=== PATIENT | male | born 1985 | race Caucasian/White ===

== ENCOUNTER 2016-12-24 22:21 | Emergency (ER) | payer BC ==
--- NOTE | ~2016-12-24 | ER ---
ADMIT: 12/24/2016 RM/LOC: ER [facility] MR#: [id number] [facility] [address] ANGELIC SANTOS [address] [place] [address] Emergency Room Report SEX: M AGE: 31 : 1985 DATE: 12/24/2016 The patient is a 31-year-old male, complaining of left lower leg pain without injury for the past 2 weeks. Concerned he may have a blood clot, no prior history of coagulopathy or family history of coagulopathy. Exam remarkable for nontoxic, afebrile male, in no acute distress. D-dimer 0.19. Reassured patient that he does not have a blood clot either on physical exam or biochemically. Follow up Dr. Horne as needed. Marshall Roblero MD/ frank JOB #: [id number] CC: Marshall Roblero MD, Attending Physician Seferino Horne MD, Family Physician Seferino Horne MD
--- NOTE | 2016-12-25 03:01 | ER ---
ADMIT: 12/24/2016 RM/LOC: ER [facility] MR#: [id number] [address] [address] ANGELIC SANTOS [address] [place] [address] Emergency Room Report SEX: M AGE: 31 : 1985 DATE: 12/24/2016 The patient is a 1-month-old whom mother states for the past 3 weeks has had consistent diarrhea with every feeding, sometimes twice between feedings, initially started on breast milk, transitioned to lactose-based formula, then soy-based, now back to lactose. Denies any eructations, feeding 3-4 ounces per feeding. Exam remarkable for nontoxic, afebrile male. No acute distress. Discussed findings with Dr. Michaud, who agrees with this physician to continue formula. Follow up Terry Kent in morning with stool sample. Marshall Roblero MD/ frank JOB #: [id number] CC: Marshall Roblero MD, Attending Physician Seferino Horne MD, Family Physician Jono Kent MD
== END 2016-12-24 23:30 | disposition home or self-care (01) ==
LOC: ER 22:21
DX: M79.662 Pain in left lower leg (principal); F17.210 Nicotine dependence, cigarettes, uncomplicated; J45.909 Unspecified asthma, uncomplicated